=== PATIENT | male | born 1990 | race Caucasian/White ===

== ENCOUNTER → 2024-06-24 06:25 | Day surgery (SDC) | payer BC, SELFPAY | LOC: GI 06:25 | PROVIDERS: ATTENDING PHYSICIAN Internal Medicine Gastroenterology | DX: K63.5 Polyp of colon (principal); K64.0 First degree hemorrhoids; R10.84 Generalized abdominal pain; Z98.0 Intestinal bypass and anastomosis status | CPT/HCPCS: 45380; 88305 ==